=== PATIENT | male | born 1960 | race Caucasian/White ===

== ENCOUNTER 2018-03-09 04:13 | Inpatient (IN) ==
[2018-03-08 14:27] LABS: URINE SOURCE CLEAN CATCH
[2018-03-08 14:32] LABS: BILIRUBIN URINE NEGATIVE (NEGATIVE); BLOOD URINE NEGATIVE (NEGATIVE); COLOR YELLOW; GLUCOSE URINE 150 mg/dL (NEGATIVE); KETONE URINE NEGATIVE (NEGATIVE); LEUKOCYTES URINE NEGATIVE (NEGATIVE); NITRITE URINE NEGATIVE (NEGATIVE); PH URINE 5.5; PROTEIN URINE TRACE mg/dL (NEGATIVE); SP GRAVITY URINE 1.022; TURBIDITY URINE CLEAR (CLEAR); UR EPITHELIAL CELLS <10 /HPF (<10); URINE BACTERIA NEGATIVE /HPF; URINE RBC <10 /HPF (<10); URINE WBC <10 /HPF (<10); UROBILINOGEN URINE NORMAL (NORMAL)
[2018-03-08 14:34] LABS: BASO# 0.04 X1000 (0.0-0.2); BASO% 0.6 % (0.0-0.8); EOS% 1.6 % (0.0-10.0); HEMATOCRIT 41.7 % (42.0-52.0); HEMOGLOBIN 13.9 g/dL (14.0-18.0); IMM GRAN# 0.02 X1000 (0.0-0.04); IMM GRAN% 0.3 % (0.0-0.5); LYMPH# 2.21 X1000 (1.2-3.4); LYMPH% 35.8 % (20.5-51.1); MCH 29.6 PG (27-31); MCHC 33.3 g/dL (33-37); MCV 88.7 FL (81-99); MONO# 0.52 X1000 (0.11-0.59); MONO% 8.4 % (1.7-9.3); MPV 9.9 FL (7.4-10.4); NEUT# 3.28 X1000 (1.4-6.5); NEUT% 53.3 % (42.2-75.2); PLT 203 X1000 (130-400); RDW 11.8 % (11.5-14.5); WBC 6.17 X1000 (4.8-10.8)
--- NOTE | 2018-03-08 14:34 | EKG Report ---
Test Performed on : 03/08/2018 1:56:16 PM Test Reason : PAT Blood Pressure : / mmHG Vent. Rate : 075 BPM Atrial Rate : 075 BPM P-R Int : 174 ms QRS Dur : 098 ms QT Int : 388 ms P-R-T Axes : 036 -05 059 degrees QTc Int : 433 ms Normal sinus rhythm. Normal ECG No previous ECGs available Confirmed by Davon ORTEGA, Cornell Summers ([id number]) on 03/08/2018 6:29:59 PM
[2018-03-08 14:37] LABS: INR 0.92; PROTIME 13.1 Seconds (11.0-16.0); PTT 24.6 Seconds (22.3-41.8)
[2018-03-08 14:42] LABS: AGAP 9; BUN 11 mg/dL (8-22); CALCIUM 9.1 mg/dL (8.8-10.2); CHLORIDE 99 mmol/L (98-107); COSMO 277; CREATININE 0.7 mg/dL (0.7-1.2); ESTIMATED GFR > 60; GLUCOSE 163 mg/dL (70-104); POTASSIUM 4.7 mmol/L (3.5-5.1); SODIUM 137 mmol/L (136-145); TCO2 29 mmol/L (25-35)
[2018-03-09] MEDS ORDERED: QUELICIN (DOSE) ONE (09:04)
[2018-03-09] MEDS ORDERED: DIPRIVAN 1% ONE (09:04)
[2018-03-09] MEDS ORDERED: ROBINUL ONE (09:04)
[2018-03-09] MEDS ORDERED: XYLOCAINE-MPF 2% ONE (09:04)
[2018-03-09] MEDS ORDERED: COLACE ONE (09:05)
[2018-03-09] MEDS ORDERED: REGLAN ONE (09:05)
[2018-03-09] MEDS ORDERED: PEPCID ONE (09:05)
[2018-03-09] MEDS ORDERED: CELEBREX ONE (09:06)
[2018-03-09] MEDS ORDERED: LR 1,000 ML ONE (09:06)
[2018-03-09] MEDS ORDERED: LYRICA ONE (09:06)
[2018-03-09] MEDS ORDERED: KEFZOL 2 GM/D5W 2 GM/50 ML IVPB ONE (09:06)
[2018-03-09] MEDS ORDERED: CYKLOKAPRON 1,000 MG/NS 1,000 MG/100 ML IVPB ONE (10:55)
[2018-03-09] MEDS ORDERED: DURAMORPH ONE (10:55)
[2018-03-09] MEDS ORDERED: VANCOMYCIN ONE (10:55)
[2018-03-09] MEDS ORDERED: EXPAREL 1.3% ONE (10:55)
[2018-03-09] MEDS ORDERED: SODIUM CHLORIDE 0.9% ONE (10:55)
[2018-03-09] MEDS ORDERED: TORADOL ONE (10:55)
[2018-03-09] MEDS ORDERED: SENSORCAINE-MPF 0.5%/EPI 1:200,000 ONE (10:55)
[2018-03-09] MEDS ORDERED: NEOSPORIN G.U. IRRIGANT ONE (10:56)
[2018-03-09] MEDS ORDERED: FENTANYL ONE (11:42)
[2018-03-09] MEDS ORDERED: ZOFRAN ONE (11:52)
[2018-03-09] MEDS ORDERED: OFIRMEV 1000 MG/ISOTONIC SOLN 1,000 MG/100 ML BOTTLE ONE (11:52)
[2018-03-09] MEDS ORDERED: EPHEDRINE ONE (12:39)
[2018-03-09 14:04] LABS: URINE SOURCE CATH
[2018-03-09] MEDS ORDERED: NS 1,000 ML ONE (14:07)
[2018-03-09] MEDS: DILAUDID ONE ×4 (14:08→14:25)
[2018-03-09 14:16] LABS: BILIRUBIN URINE NEGATIVE (NEGATIVE); BLOOD URINE NEGATIVE (NEGATIVE); COLOR YELLOW; GLUCOSE URINE 500 mg/dL (NEGATIVE); KETONE URINE TRACE mg/dL (NEGATIVE); LEUKOCYTES URINE NEGATIVE (NEGATIVE); NITRITE URINE NEGATIVE (NEGATIVE); PH URINE 5.5; PROTEIN URINE TRACE mg/dL (NEGATIVE); SP GRAVITY URINE 1.021; TURBIDITY URINE CLEAR (CLEAR); UR EPITHELIAL CELLS <10 /HPF (<10); URINE BACTERIA NEGATIVE /HPF; URINE RBC <10 /HPF (<10); URINE WBC <10 /HPF (<10); UROBILINOGEN URINE NORMAL (NORMAL)
[2018-03-09] MEDS ORDERED: ANUSOL-HC CREAM ONE (14:55)
--- NOTE | 2018-03-09 15:07 | Diag Imaging Result Doc PS360 ---
EXAM: SHOULDER 1 VIEW LEFT 03/09/2018 HISTORY: left TSA TECHNIQUE: Left shoulder one view COMMENT: There is a total shoulder arthroplasty. There is a bony fragment adjacent to the neck of the prosthesis superolaterally. This may be residual from the comminuted humeral neck fracture seen on 02/07/2018. IMPRESSION: Left total shoulder arthroplasty with residual fracture fragments in the area of the neck. Electronically signed by Rafi Pendleton 03/09/2018 3:05 PM
[2018-03-09] MEDS ORDERED: ZOFRAN PO PRN (15:45)
[2018-03-09] MEDS: NS 1,000 ML IV SCH (16:29)
[2018-03-09] MEDS: OXY IR PO PRN ×2 (16:34→21:28)
[2018-03-09] MEDS ORDERED: CYKLOKAPRON 1,000 MG in NS 100 ML IV ONE (17:00)
[2018-03-09] MEDS: GLUCOPHAGE PO SCH (20:18)
[2018-03-09] MEDS: ROBAXIN PO SCH (20:18)
[2018-03-09] MEDS: PERIDEX MT SCH (20:18)
[2018-03-09] MEDS: KEFZOL 2 GM/D5W 2 GM/50 ML IVPB IV SCH (20:19)
[2018-03-09] MEDS: AMARYL PO SCH (20:19)
[2018-03-10] MEDS: OXY IR PO PRN ×3 (01:59→08:02)
[2018-03-10] MEDS: KEFZOL 2 GM/D5W 2 GM/50 ML IVPB IV SCH (04:34)
--- NOTE | 2018-03-10 04:43 | OPERATIVE NOTE ---
PROCEDURE DATE: 03/09/2018 PREOPERATIVE DIAGNOSIS: Left comminuted 4-part proximal humeral fracture. POSTOPERATIVE DIAGNOSIS: Left comminuted 4-part proximal humeral fracture. PROCEDURE: Left reverse total shoulder arthroplasty with DePuy Delta Xtend size 10 cemented stem, a 42+6 humeral cup, a 42 eccentric Glenosphere, and a standard metaglene. SURGEON: Douglas. TECHNOLOGY ARCHITECT: Samina Gonzalez. SECOND LUMBER HANDLER: Markel Shine. ANESTHESIA: General. IV FLUIDS: 2500 mL lactated Ringer's. ESTIMATED BLOOD LOSS: 150 mL. COMPLICATIONS: None. INDICATION: The patient is a pleasant 57-year-old male, who is status post fall, injuring his left shoulder while at work last month. He underwent x-rays, as well as a CT scan, which revealed a left comminuted 4-part proximal humeral fracture. Due to the patient's findings, the recommendation to proceed with reverse total shoulder arthroplasty was offered. Risks and benefits of surgery were explained, including the risks of anesthesia, , bleeding, infection, failure to relieve pain, postoperative stiffness, nerve injury, blood clots, and other imponderables. All questions answered. The patient and family wished to proceed with surgery. DETAILS OF OPERATION: The patient was taken to the operating room and placed supine on the operating table. Once adequate anesthesia was obtained, the patient was placed in a semi-Muñoz beach-chair position. The left shoulder was subsequently prepped and draped in the usual sterile fashion. A deltopectoral incision was made with a skin knife. Medial and lateral skin envelopes were developed. Hemostasis was obtained using electrocautery. The deltopectoral interval was then developed. Retractors were then placed. The fracture site was then identified. A small osteotome was used to further elevate the lesser tuberosity. This was then mobilized. The fracture of the humeral head with compression was identified and split in the superolateral portion of the humeral head. The humeral head was then removed without difficulty. The greater tuberosity fracture had acceptable position. After this had been performed, attention was then turned to the glenoid. Circumferential dissection performed with a deep knife. A guide was then placed in position for position of the guide pin. Guide pin was then placed in position. Reaming was then conducted. The central hole was then dilated. The wound was copiously irrigated with antibiotic pulsatile lavage. A standard metaglene was then placed. Three locking screws and one nonlocking screw were placed, and had good purchase. The wound was copiously irrigated once again. A 42 eccentric Glenosphere was then placed, with the eccentricity placed inferiorly. Attention turned to the humerus, where x-rays and reaming was conducted up to a size 10. The trial stem was placed and confirmed with appropriate height. This was then removed. Copious irrigation was then performed with antibiotic pulsatile lavage, while vancomycin was mixed with cement on the back table. Cement was then placed in the intramedullary canal. This was followed by the size 10 stem, in 15 degrees of retroversion. After this had been performed, the trial cup was a 42+6 humeral cup. It appeared to be the correct size. The trial cup was removed. The wound was copiously irrigated. A 42+6 humeral cup was then placed. The shoulder was reduced, carried through range of motion, and appeared to have good soft tissue balancing. After this had been performed, Exparel was placed in the deep soft tissue. The subscapularis tendon was then repaired with #2 FiberWire. The #2 FiberWire was used to stabilize the greater tuberosity, as well anteriorly. The remaining Exparel was placed in the deep soft tissue, as well as subcutaneous tissue. The wound was copiously irrigated once again with antibiotic pulsatile lavage. 2-0 Vicryl was then used to repair the subcutaneous tissue, followed by a running 2-0 Prolene. Benzoin and Steri-Strips were applied. Adaptic, sterile 4x4's, ABD pad, and tape, followed by a shoulder immobilizer. All counts were correct. The patient tolerated the procedure well, and was transferred to the recovery room in stable condition. cc: Yo Cole MD
[2018-03-10] MEDS: NS 1,000 ML IV SCH (05:57)
[2018-03-10 06:16] LABS: HEMATOCRIT 37.8 % (42.0-52.0); HEMOGLOBIN 12.3 g/dL (14.0-18.0)
[2018-03-10 06:43] LABS: AGAP 9; BUN 7 mg/dL (8-22); CALCIUM 8.3 mg/dL (8.8-10.2); CHLORIDE 99 mmol/L (98-107); COSMO 275; CREATININE 0.7 mg/dL (0.7-1.2); ESTIMATED GFR > 60; GLUCOSE 227 mg/dL (70-104); POTASSIUM 4.4 mmol/L (3.5-5.1); SODIUM 135 mmol/L (136-145); TCO2 27 mmol/L (25-35)
[2018-03-10 07:49] VITALS: BP 131/60
[2018-03-10] MEDS: ROBAXIN PO SCH (08:02)
[2018-03-10] MEDS: GLUCOPHAGE PO SCH (08:03)
[2018-03-10] MEDS: PERIDEX MT SCH (08:03)
[2018-03-10] MEDS: AMARYL PO SCH (08:04)
== END 2018-03-10 10:34 | disposition home health service (06) | DRG 483 ==
LOC: SURHOLD 04:13 → 4N 13:38
PROVIDERS: ADMIT Orthopaedic Surgery Adult Reconstructive Orthopaedic Surgery; ATTEND Orthopaedic Surgery Adult Reconstructive Orthopaedic Surgery
CPT/HCPCS: 73020; 80048; 81001; 82948; 85014; 85018; 85025; 85610; 85730; 86850; 86900; 86901; 88305; 88311; 93005; 93010; 94761; 94799; A9270; C9290; J0131; J0330; J0690; J1170; J1885; J2274; J2275; J2405; J3010; J3370; J7030; J7120; Q9974; XXXXX